=== PATIENT | male | born 1995 | race Caucasian/White ===

== ENCOUNTER 2019-03-03 21:25 | Emergency (ER) | payer OTHER ==
--- NOTE | 2019-03-03 22:14 | RAD ---
XR Chest Pa Lat STANDARD HISTORY: Cough COMPARISON: None. FINDINGS: Heart size and mediastinum are within normal limits. The lungs are clear of infiltrates. No significant bony findings. IMPRESSION: No active intrathoracic disease.
== END 2019-03-03 22:22 | disposition home or self-care (01) ==
LOC: ERS 21:25
DX: J20.9 Acute bronchitis, unspecified (principal)
CPT/HCPCS: 71046